=== PATIENT | female | born 1980 | race Caucasian/White ===

== ENCOUNTER 2024-10-30 06:24 | Day surgery (SDC) | payer BC ==
[~2024-10-30 06:24] MED LIST: Sodium Chloride 0.9% 10 ML Syringe FLUSH PRN
[2024-10-30] MEDS ORDERED: Midazolam 1 MG/ML 2 ML SDV IV ONE (06:25)
[2024-10-30] MEDS ORDERED: Lidocaine 2% 100 MG/5 ML Syringe IVPUSH ONE (06:25)
[2024-10-30] MEDS ORDERED: Propofol 200 MG/20 ML SDV IV ONE (06:25)
[2024-10-30] MEDS: Lactated Ringers 1,000 ML IV SCH (07:25)
[2024-10-30] MEDS: Simethicone Drops 40 MG/0.6 ML 30 ML Bottle ONE (07:55)
== END 2024-10-30 09:13 | disposition home or self-care (01) ==
LOC: FB.SDS 06:24
PROVIDERS: ATTEND Surgery
DX: Z12.11 Encounter for screening for malignant neoplasm of colon (principal); K62.1 Rectal polyp; K57.30 Diverticulosis of large intestine without perforation or abscess without bleeding; I10 Essential (primary) hypertension
CPT/HCPCS: 45384; 81025; 88305; A9270; J2250; J2704; J7120; 00811